=== PATIENT | female | born 1990 | race Caucasian/White ===

== ENCOUNTER 2018-06-14 17:18 | Emergency (ER) | payer OTHER, SELFPAY ==
[2018-06-14 17:20] VITALS: BP 150/86; PULSE 88; RESP 17; TEMP 36.8; O2SAT 98; BMI 47.5
--- NOTE | 2018-06-14 17:50 | RAD_ITS ---
STUDY: X-RAY FOOT RIGHT REASON FOR EXAM: Female, 30 years old. Generalized right foot pain since falling 2 months ago. TECHNIQUE: 3 views COMPARISON: None. FINDINGS: Plantar spur of the calcaneus. Otherwise normal calcaneus, talus and tarsal bones. Normal articulations of the hindfoot midfoot and forefoot. Normal metacarpals. Mild hallux valgus. Normal toes and interphalangeal joints. RAD/Foot min 3 Views IMPRESSION: Negative for fracture or dislocation. Small plantar spur of the calcaneus and mild hallux valgus. Electronically Signed: Kym Haji MD at 18:41 EDT , Service support ,
--- NOTE | 2018-06-14 18:44 | ED.DCSUM_ITS ---
- ER Visit Summary Date of Service: 06/14/18 Chief Complaint: Right foot injury History of Present Illness: The patient is a 27 F who initially injured her right foot 2 months ago. Patient states that she jumped out of the van at work to make it to a meeting in time. She rolled her right foot. She had in termittent pain since that time but now the pain is been worse over the past 1 week and over the arch of her foot. Physical Examination: Blood pressure 150/86, otherwise vitals normal. Patient sitting upright in bed no acute distress. Right lower extremity examination reveals tenderness along the plantar surface of the foot. No overlying skin changes. There is no focal tenderness of the ankle or knee. She does have good pulses and sensation. She does have slight increased pain with dorsiflexion of her toes. Test Results: Right foot x-ray reveals no fracture or dislocation. Small plantar spur is noted. Emergency Department Course and Treatment: Patient be treated with naproxen and prednisone for plantar fasciitis. Tom wrap was applied across the midfoot for support. She is given work restrictions and will follow up with [facility] care. Treatment Plan: [] Disposition: Discharge Impression: Plantar fasciitis status post blunt foot injury This note was generated with [employer] dictation software. It may contain incorrect words, spelling, and punctuation that were not noted in review of the chart prior to signing ED Disposition - Plan for ED Patient: Disposition: Home or Assisted Living Instructions: ED Plantar Fasciitis Prescriptions: Naproxen [Naprosyn] 500 mg PO BID PRN PRN #20 tablet PRN Reason: Pain Prednisone [Deltasone] 40 mg PO DAILY #10 tablet [facility]: [facility] [GROUP OF PHYSICIANS] - 3-5 Days
[2018-06-14 18:52] VITALS: RESP 16
--- NOTE | 2018-06-14 18:52 | ED.RN ---
REVIEWED D/C INSTRUCTIONS, FOLLOW UP CARE, PRESCRIPTIONS, AND S/S THAT WOULD WARRANT A RETURN TO THE ED WITH PT. PT VERBALIZED AN UNDERSTANDING AND DENIES FURTHER QUESTIONS FOR THIS RN. PT SKIN P/W/D, RESP EVEN AND UNLABORED, PT A&O X 3, NO DISTRESS NOTED. PT AMBULATED OUT OF ED, GAIT STEADY.
== END 2018-06-14 18:53 | disposition home or self-care (01) ==
PROVIDERS: Emergency Provider Emergency Medicine; Family Provider Nurse Practitioner Primary Care; PCP Nurse Practitioner Primary Care
DX: S99.921A Unspecified injury of right foot, initial encounter (principal); X50.1XXA Overexertion from prolonged static or awkward postures, initial encounter; Y93.39 Activity, other involving climbing, rappelling and jumping off; Y92.89 Other specified places as the place of occurrence of the external cause; Y99.0 Civilian activity done for income or pay; M72.2 Plantar fascial fibromatosis; M77.31 Calcaneal spur, right foot
CPT/HCPCS: 73630; 99282

== ENCOUNTER 2018-10-01 13:45 | Observation (INO) | payer OTHER, SELFPAY ==
[2018-09-04 15:03] VITALS: BMI 47.5
--- NOTE | 2018-09-07 10:58 | HP_ITS ---
Intake Vital Signs 09/04/18 Body Mass Index (BMI) 47.5 09/04/18 Height 5 ft 2 in 09/04/18 Weight: 252 lb 2 oz 09/04/18 Body Mass Index (BMI) 46.0 09/04/18 Blood Pressure 125/84 H 09/04/18 Blood Pressure Location Rt brachial 09/04/18 Respiratory Rate 18 09/04/18 Pulse Rate 90 09/04/18 Temperature 98.7 F 09/04/18 Temperature Source Oral 09/04/18 Pulse Ox 97 09/04/18 Oxygen Delivery Method room air Intake Visit Reasons: Partial Thyroidectomy Is patient in pain?: No Allergies No Known Allergies Allergy (Verified 09/04/18 15:02) Medications Levonorgesterol [Mirena] 1 ea IY X1 06/14/18 [History Confirmed 09/04/18] Naproxen [Naprosyn] 500 mg PO BID PRN PRN #20 tab 06/14/18 [Rx Confirmed 09/04/18] [id number]-[id number] 250 mg-250 mg-65 mg tablet 2 tab PO Q6H PRN 09/04/18 [History Confirmed 09/04/18] PFSH Medical History Enlarged thyroid (Acute) Surgical History History of ear surgery (Acute) History of nasal surgery (Acute) Family History Mother Diabetes Heart disease Thyroid disorder Father Diabetes Heart disease Seizures Thyroid disorder Grandmother Heart disease Diabetes Social History (Updated 09/07/18 @ 10:58 by Doug Velazquez MD) Smoking Status: Never smoker HPI HPI HPI: CHASIDY OCONNOR, is a 27 F who presents to the office today for HPI HPI Surgical H&P: Yes HPI: CHASIDY OCONNOR, is a 27 F who presents to the office today for evaluation of uninodular goiter. Patient has a thyroid ultrasound completed at [facility] in [place] which showed a 7.6 cm nodule she subsequently underwent a fine-needle aspiration of this which came back consistent with a follicular nodule. There were no nodules on the right side. She has had no difficulty with her voice. She is not complaining of any neck pain. ROS General General: No weight change, appetite, fatigue, colon cancer, breast cancer or weakness HEENT HEENT: Yes difficulty swallowing and swollen glands; no eye injury, eye surgery or hoarseness Endo Endocrine: Yes thyroid disease; no diabetes mellitus, thyroid cancer, Hair loss, heat intolerance or cold intolerance Skin Skin: No rash or changing moles Breast Breast: No left breast lump, right breast lump, nipple discharge, breast pain, abnormal mammogram, abnormal US or breast enlargement Musc Musculoskeletal: No back problems, arthritis, rheumatoid arthritis, gout or joint pain Cardio Cardiovascular: No murmur, pacemaker, heart disease, atrial fibrillation, high blood pressure, heart attack, heart stent, palpitations, shortness of breat with exertion or chest pain Psych Psychiatric: No depression, anxiety or hearing voices Resp Respiratory: No shortness of breath, No sleep apnea, No cough, No COPD, No asthma, No emphysema, No wheezing Gastro Gastrointestinal: No abdominal pain, No nausea or vomiting, No diarrhea, No constipation, No blood in stool, No acid reflux, No hemorrhoids, No ulcers, No gallbladder problem, No black,tarry stools Derrell Hematologic: No blood thinners, No blood disorders, No bleeding, No anemia, No blood clots Neuro Neurologic: No system reviewed and no additional complaints, except as docu, No as per HPI, No abnormal walking, No abnormal hearing, No abnormal movements, No abnormal speech, No behavioral changes, No burning sensations, No confusion, No seizure-like activity, No unsteadiness, No dizziness, No localized weakness, No frequent falls, No headache(s), No lack of coordination, No loss of vision, No memory loss, No numbness, No other visual disturbances, No radiating pain, No restless legs, No sensory deficit, No fainting, No tingling, No tremor(s), No weakness, No other Exam Const General: no acute distress, well developed, well hydrated Orientation: oriented to person, oriented to place, oriented to time [facility] Head: normocephalic, atraumatic Ears: external ears normal Mouth: moist mucous membranes Other: Thyroid Exam: Left-sided enlargement is easily palpable. There are no hard nodules within that side of the neck. I cannot palpate any lymph nodes on that side of the neck. The right side is supple there is no hard palpable nodules or lymphadenopathy identified either. Eyes Sclera: sclerae normal Pupils: normal by confrontation Neck Neck: no lymphadenopathy noted Neck mass: No Thyroid: thyroid normal, symmetrical Chest Chest palpation & inspection: normal inspection of the chest Breast Palpation: No nipple discharge Resp Effort & Inspection: normal respiratory effort Auscultation: clear to auscultation bilaterally Percussion: percussion normal Cardio Rate: regular rate Rhythm: regular rhythm Heart Sounds: no murmurs GI Palpation: soft, no hepatosplenomegaly, no masses, nontender Rectal Exam: other Other: Rectal exam deferred. Extrem General: normal to inspection, no clubbing, cyanosis or edema Assessment & Plan Problems 1. Uninodular goiter E04.1 Plan Plan is to perform a left-sided thyroid lobectomy and isthmusectomy. At the time of surgery I will obtain a frozen section to see if we can identify papillary thyroid cancer and if we can she will undergo total thyroidectomy at that time. Otherwise the patient understands that we will have to obtain a permanent section on the thyroid gland and there still is a possibility that she could go back to surgery and undergo completion right-sided thyroid lobectomy. Risk benefits of the procedure to include bleeding infection and possible injury to parathyroid glands and recurrent laryngeal nerve which could require further surgery were discussed in great detail with her. She agrees to proceed. Coding Level of Care Code Off vis,new,level 3 Diagnoses Uninodular goiter E04.1 09/07/18 1059 <Electronically signed by Doug witt MD> Date _ Doug Velazquez MD I have re-examined the patient. There are no clinical changes since date of exam.
[2018-10-01] VITALS (13 sets, daily range): BP systolic 93–129; BP diastolic 53–77; PULSE 68–118; RESP 16–18; TEMP 36.7–37.1; O2SAT 93–99; BMI 47.0
--- NOTE | 2018-10-01 | IMM_PTH ---
PATIENT: CHASIDY OCONNOR LOC: MS3 U#:[id number] AGE/SX: 27/F ROOM: MS319 RE10/01/[address]: Dr. Doug Velazquez MD : 1990 BED: 1 DIS: 10/02/2018 SPEC #: [id number] RECD: 10/03/18 10:35 STATUS: LINDA REQ #: [id number] RONA: 10/01/18 00:[address]: Doug Velazquez DEPT: IMMUNOHISTOCHEMISTRY RECD BY: Ariel Singh ENTERED: 10/03/18 10:37 SP TYPE: IMMUNO OTHR DR: Mary Bal, BOTTOM CEMENTER-C Tissues: Thyroid gland, NOS Procedures: HBME (initial) CD56 (add) CK19 (add) GAL-3 (add) HBME (add) PHYSICIAN & INSTITUTION [place] [phone] SPECIMEN INFORMATION: Tissue Source: Let thyroid lobectomy Clinical Info: Uninodular goiter Specimen Number: [id number] Blocks 1, 2, and 12 CPT code: 13718, 20962 x11 METHODOLOGY: Deparaffinized sections of prefer/formalin-fixed tissue or PAP/DQ stained slides are incubated with monoclonal/polyclonal antibodies/oligonucleotide probes. Localization is made via biotin free immunoperoxidase method. Appropriate controls are performed and reacted as expected. Results on target cell population are indicated in the following table: RESULTS: ANTIBODY / CLONE RESULT Block 1 HBME1 (HBME-1) positive, focal CK19 (A53-B/A2.26) positive, focal GAL3 (9C4) negative CD56 (123C3.D5) positive Block 2 HBME1 (HBME-1) positive CK19 (A53-B/A2.26) positive GAL3 (9C4) positive CD56 (123C3.D5) negative Block 12 HBME1 (HBME-1) positive CK19 (A53-B/A2.26) negative GAL3 (9C4) negative CD56 (123C3.D5) positive These tests were developed and their performance characteristics determined by [facility]. They may not have been cleared or approved by the U.S. Food and Drug Administration. The FDA has determined that such clearance or approval is not necessary. INTERPRETATION: Left thyroid lobectomy and isthmusectomy: - Colloid nodule with multifocal adenomatoid changes. 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 Wright who concurs with the above diagnosis. IDC:[email or web address] SJ:cc 10/04/18
[2018-10-01 09:03] LABS: Internal QC Validated? YES +Cl - CLEAR BKGD; Pregnancy, Urine Negative Negative
[2018-10-01] MEDS: Lactated Ringers 1,000 ML 75 ML IV ×3 (09:54→14:37)
[2018-10-01] MEDS: Cefazolin 2 GM in 0.9% Normal Saline 100 ML IV (11:09)
--- NOTE | 2018-10-01 11:40 | THYROID_PTH ---
PATIENT: CHASIDY OCONNOR LOC: MS3 U#:[id number] AGE/SX: 27/F ROOM: MS319 RE10/01/[address]: Dr. Doug Velazquez MD : 1990 BED: 1 DIS: 10/02/2018 SPEC #: [id number] RECD: 10/01/18 11:47 STATUS: LINDA REMichael #: [id number] RONA: 10/01/18 11:[address]: Doug Velazquez DEPT: SURGICAL PATHOLOGY RECD BY: Ariel Singh ENTERED: 10/01/18 13:39 SP TYPE: THYROID OTHR DR: Mary Bal, TIRE SETTER-C Tissues: Thyroid gland, NOS Procedures: Frozen Section (charge) Surgery Specimen Level V HEADER OPERATION: Thyroid lobectomy, isthmusectomy PRE-OP DIAGNOSIS: Uninodular goiter TISSUE SUBMITTED: Left thyroid lobectomy FROZEN SECTION DIAGNOSIS Left thyroid lobectomy: Colloid nodule :eliceo 10/01/18 MICROSCOPIC DIAGNOSIS Left thyroid, lobectomy, isthmusectomy: Colloid nodule with multifocal adenomatoid changes (8 cm in greatest dimension). Papillary thyroid microcarcinoma, isthmus (0.2 cm in greatest dimension). See cancer summary below. SJ:herrera 10/03/18 THYROID CANCER SUMMARY: Procedure - Thyroid lobectomy and isthmusectomy. Received - fresh in formalin Specimen integrity - intact Specimen size - left lobe 8 x 5.5 x 3 cm, isthmus 1 x 1 x 0.4 cm Specimen weight - 75.8 gm Tumor focality - unifocal Tumor laterality - left lobe Tumor size - 0.2 cm in greatest dimension Histologic type - papillary carcinoma Variant - microcarcinoma Architecture - follicular Cytomorphology - classical Margins - uninvolved by carcinoma Distance invasive carcinoma to closest margin - 0.2 cm from closest anterior margin Tumor capsule - not identified Tumor capsular invasion - not applicable Lymph-Vascular invasion - not identified Perineural invasion - not identified Extrathyroidal extension - not identified Lymph nodes - no nodes submitted or found Distant metastasis - not applicable Additional pathologic findings - follicular adenoma Ancillary studies - See report [id number] PATHOLOGIC STAGE: pT1 NX MX The above summary is in compliance with [employer] Path[employer] (CAP) Cancer Protocols Checklist and [place] Joint Committee on Cancer (AJCC), Staging Manual, 8th Ed. COMMENT Grossly no definite nodule is identified, however, microscopically the entire lobe is replaced by the large colloid nodule with multifocal adenomatoid changes. Case has been reviewed in consultation with Dr. Wright who concurs with the above diagnosis. IDC:AM MICROSCOPIC DESCRIPTION Slides are reviewed. GROSS DESCRIPTION Received fresh for frozen section diagnosis labeled with the patient's name is a specimen designated left thyroid lobectomy. The specimen consists of left thyroid lobectomy and isthmectomy. The specimen weighs 75.8 gm. The left lobe measures 8 x 5.5 x 3 cm. The isthmus measures 1 x 1 x 0.4 cm. No external parathyroid tissue is identified. The specimen is inked as follows: anterior - blue; posterior - black; isthmic margin - yellow. Serial sections revealed pink-red cut surfaces. No obvious nodule is identified. A section is submitted for frozen section diagnosis. [employer] sections are submitted in 12 cassettes as follows: 1 - frozen section; 2 - isthmus; 3-12 - more sections cassette ( 3 containing most superior portion and cassette 12 containing most inferior portion). MARIANA:herrera 10/02/18 TC: 0 CPT: 46904, 67480
--- NOTE | 2018-10-01 11:58 | PCM.OPRPT ---
Problem List (1) Uninodular goiter Status: Acute Report of Operation Date of Procedure: 10/01/18 Pre-Operative Diagnosis: Left-sided uninodular goiter Post-Operative Diagnosis: Same Surgery/Procedure Performed:: Left-sided thyroid lobectomy and isthmusectomy Type of Anesthesia:: General Anesthesiologist: Mihai Somers Specimen's removed: Left thyroid and isthmus. Frozen section was colloid nodule Estimated Blood Loss (mL): < 25 cc Fluids Replaced: 700 cc LR Description of Procedure: Was brought in the operating room. Placed in the supine position. Under excellent general trach intubation the neck was extended and sterilely prepped and draped in usual fashion. Local was injected. Cervical incision was made. Dissection was carried down through the platysma. Subplatysmal flaps were created with use letter cautery. Gelpi retractor was placed inside the wound. Midline strap muscles were opened. I transected the strap muscles immediately with harmonic dissector. I went to the superior pole vessels took these down with harmonic dissector. Rotated the gland from lateral to medial standpoint taking the middle thyroidal vein down. Finally going to the inferior thyroid vessels and taking these down with harmonic dissector. Rotated the gland from lateral medial standpoint him across Khanh's ligaments with a harmonic dissector. Rotated the gland off the trachea and then transected on the right side of the thyroid gland. I inspected it I saw nothing that look like parathyroid tissue. Irrigated out the left side I had good hemostasis I brought the strap muscles together in layers using 0 Vicryl then placed FloSeal in place of Surgicel into the wound. Midline strap muscles were reapproximated using 2-0 Vicryl. Subplatysmal flaps were then brought together with 2-0 Vicryl. Local was injected. Deep dermal stitches of 3-0 Vicryl. Then a running 4-0 Monocryl. Dermabond was applied sterile dressings were applied and the patient tolerated the procedure well. Prior to closure frozen section did come back consistent with a colloid nodule. - Admit VTE Documentation VTE Present on Admission: No VTE Mechan Device Prophylaxis: SCD's VTE Pharm Prophylaxis ordered?: No Reason prophylaxis not ordered:: Treatment Not Indicated
[2018-10-01] MEDS: BUPIVACAINE LIPOSOME/PF 20 ML VIAL OPERA.SITE (12:21)
[2018-10-01] MEDS: oxyCODONE 5 MG Tablet PO (22:06)
[2018-10-02 04:00] VITALS: BP 129/74; PULSE 97; RESP 18; TEMP 37; O2SAT 94
[2018-10-02] MEDS: oxyCODONE 5 MG Tablet PO ×2 (04:06→10:12)
[2018-10-02] MEDS: Lactated Ringers 1,000 ML 75 ML IV (04:06)
--- NOTE | 2018-10-02 07:08 | PCM.PN.SRG ---
Patient Problems: Active and Suspected Problems (Last Reviewed 09/07/18 @ 10:56 by Doug Velazquez MD) Uninodular goiter (Acute) Subjective: Patient evaluated resting comfortably in bed. She notes minimal amount of incisional discomfort. - Physical Exam General: Alert, Oriented x3, Cooperative Neck: Supple, No JVD, Negative Carotid Bruits, - - Anterior cervical incision- c/d/i. No erythema or infection noted. Vital Signs Temp Pulse Resp BP Pulse Ox 98.6 F 97 18 129/74 H 94 10/02/18 04:00 10/02/18 04:00 10/02/18 04:00 10/02/18 04:00 10/02/18 04:00 Oxygen Flow Rate (L/min) 2 Oxygen Delivery Method Room Air Weight: 248 lb 14.43 oz Body Mass Index (BMI) 47.0 Intake and Output for Last 24 Hours 09/30/18 10/01/18 10/02/18 23:59 23:59 23:59 Intake Total 1845 / 2045 1200 / 1200 Balance 1845 / 2045 1200 / 1200 Laboratory Tests Past 24 Hrs 10/01/18 08:50 Urine Test Negative Medical Necessity - Tobacco Use Smoking Status: Never smoker Assessment/Plan All Active Problems (Last Reviewed 09/07/18 @ 10:56 by Doug Velazquez MD) Uninodular goiter (Acute) Enlarged thyroid (Acute) I am following this patient in conjunction with Dr. Velazquez S/p left thyroid lobectomy Ready for discharge Code Visit Inpatient E&M: 61347 Subs Hosp L1 - No charge
--- NOTE | 2018-10-02 07:10 | DCINST_ITS ---
Discharge Diet: Light diet - advance as tolerated Discharge Activity: May not drive while taking narcotic pain medications. May shower in (days): 1 Lifting Restrictions: 10 pounds Call your doctor if your incision/area has: Continuous Slow Oozing, Sudden Increased Bleeding, Increased Pain/ Swelling, Increased Redness, Foul Smelling Discharge, Swelling at the incision site Call your doctor if you observe: Fever of 101 or Higher, Coldness, Increased Pain Suture Line Care: Avoid Pulling/Pushing, Avoid Pinching/Bending Cleanse incision/area with: Soap & Water Allergies/Adverse Reactions: Allergies No Known Allergies Allergy (Verified 09/24/18 11:12) Medications to take at Discharge Levonorgesterol [Mirena] 1 ea IY X1 06/14/18 [id number]-[id number]-[id number] 250 mg-250 mg-65 mg tablet 2 tab PO Q6H PRN 09/04/18 Albuterol Inhaler [Ventolin Hfa] 1 - 2 puff INHALATION Q6H PRN PRN 09/24/18 Oxycodone HCl/Acetaminophen [Percocet 5/325] 1 - 2 tab PO Q4H PRN PRN 6 Days #30 tab 10/01/18 Oxycodone [Oxyir] 5 mg PO Q6H PRN PRN 3 Days #8 tab 10/02/18 The following prescriptions were given: Oxycodone HCl/Acetaminophen [Percocet 5/325] 1 - 2 tab PO Q4H PRN PRN 6 Days #30 tab PRN Reason: Pain Prescription Printed Primary Care Physician: Mary Bal NP-C [Primary Care Provider] - Test Results: Test results from this visit will be discussed in further detail at your follow- up appointment, if applicable. Please Follow Up With: Doug Velazquez MD - [phone] When: 10 days Proposed Discharge Date: 10/02/18
[2018-10-02 08:30] VITALS: BP 144/92; PULSE 102; RESP 18; TEMP 36.9; O2SAT 96
== END 2018-10-02 11:31 | disposition home or self-care (01) ==
LOC: SDC 14:11
PROVIDERS: Anesthesiology; Admitting Provider Surgery; Family Provider Nurse Practitioner Primary Care; PCP Nurse Practitioner Primary Care; Referring Provider Surgery; Visit Provider Surgery
PROC: (CPT 60220; principal; 2018-10-01 10:45)
DX: C73 Malignant neoplasm of thyroid gland (principal); K21.9 Gastro-esophageal reflux disease without esophagitis; E04.1 Nontoxic single thyroid nodule
CPT/HCPCS: 60220; 81025; 88307; 88331; 88341; 88342; 96360; 96361; 99218; J7120; G0378; G0379; J2405

== ENCOUNTER 2020-04-02 18:56 | Emergency (ER) | payer OTHER, SELFPAY ==
[2018-10-08 10:15] VITALS: BMI 47.0
[2020-04-02 18:58] VITALS: BP 156/79; PULSE 95; RESP 15; TEMP 36.2; O2SAT 98; BMI 44.9
--- NOTE | 2020-04-02 19:08 | ED.VIS.GEN ---
History of Present Illness Chief Complaint: Lower Extremity Injury Informant: Patient Onset: Hours Context: Sudden Onset Timing: Continuous Quality: Discomfort Location: Lateral right ankle Current Severity: Mild Maximum Severity: Mild Worsened by: Movement Relieved by: Rest Associated Symptoms: None Narrative: Patient presents from work for evaluation of right ankle injury. Based on what she described she had applied inversion mechanism injury. She did not feel a pop or tear. She reports swelling over the lateral aspect. She denies prior injury. She denies pain in her foot. She denies paresthesia, anesthesia or motor weakness. Prior similar symptoms: No Recent Illness/Hospitalization: No - Past Medical History (1) Enlarged thyroid Status: Acute Past Medical History - Allergies and Home Meds Allergies/Adverse Reactions: Allergies No Known Allergies Allergy (Verified 04/02/20 19:00) Primary Care Physician: Mary Bal NP, METHODS SPECIALIST ENGINEER-C [Primary Care Provider] - Prior records reviewed: Yes Surgical History: no surgical history Lives: Alone Smoking Status: Never smoker Drugs: None Review of Systems General: Denies: Chills, Fever, Malaise Musculoskeletal: Reports: Swelling, Extremity Pain. Denies: Myalgias, Arthralgias Skin: Denies: Rash, Wounds Neurological: Denies: Weakness, Parasthesia, Numbness Hematologic: Denies: Easy bruising, Easy bleeding Physical Exam Vital Signs/Narrative: Vital Signs Temp Pulse Resp BP Pulse Ox 04/02/20 18:58 97.2 F L 95 15 156/79 H 98 Inital Vital Signs reviewed: Yes General: Well nourished, Well developed, Obese, No Acute Distress Head: Normocephalic, Atraumatic Eyes: Perrl, EOMI. Negative for: Scleral icterus Cardiovascular: Regular rate, Regular rhythm Respiratory: No distress Extremities: No edema, Tenderness - Normal tenderness over the tip/distal aspect of the right fibula. There is no pain ovation over the medial malleolus. There is no laxity with drawer testing. There is no pain to palpation of base of the fifth metatarsal. DP and PT pulse are palpable., - - Patient has pain ovation over the anterior talofibular ligament. There is no pain over the calcaneofibular ligament.. Negative for: Nontender Skin: Normal color, No rash, Trauma - Soft tissue swelling and discoloration over the lateral malleolus Neurological: Alert, Oriented x3, Cranial nerves II-XII grossly intact, Normal Strength, Normal Sensation, Normal DTR Psychological: Normal affect, Normal Mood Diagnostic/Tx/Re-eval - Medical Decision Making Presents with injury to ankle. Differential includes sprain versus fracture. Based on the [place] ankle rule imaging not indicated. Patient was treated with NSAIDs and discharged home with appropriate home-going instructions. ED Disposition - Plan for ED Patient: Disposition: Home or Assisted Living Diagnosis: Sprain of anterior talofibular ligament of right ankle Instructions: ED Ankle Sprain (Adult) Prescriptions: Naproxen [Naprosyn] 500 mg PO BID #14 tab Transmission Status: Pending to [place] [address] [address] [facility] Referrals: Mary Bal METHODS SPECIALIST ENGINEER, METHODS SPECIALIST ENGINEER-C [Primary Care Provider] - 10-14 Days if not better Additional Instructions: 1. Where flat shoes until pain-free 2. No going up ladders or inclines greater than 10/15 degrees for the next week or 2. 3. Apply ice 6-8 times a day. 4. The more you are standing or upright the more swelling you may have.
== END 2020-04-02 19:53 | disposition home or self-care (01) ==
LOC: ED 19:25
PROVIDERS: Emergency Provider Emergency Medicine; PCP Nurse Practitioner Primary Care
DX: S93.491A Sprain of other ligament of right ankle, initial encounter (principal); X50.1XXA Overexertion from prolonged static or awkward postures, initial encounter; Y93.9 Activity, unspecified; Y92.9 Unspecified place or not applicable; Y99.0 Civilian activity done for income or pay; E66.9 Obesity, unspecified; Z68.41 Body mass index [BMI] 40.0-44.9, adult
CPT/HCPCS: 99282

== ENCOUNTER 2020-12-22 22:39 | Emergency (ER) | payer OTHER, SELFPAY ==
[2020-12-22 22:41] VITALS: BP 129/91; PULSE 109; RESP 15; TEMP 36.4; O2SAT 97; BMI 42.2
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
[2020-12-23] MEDS: Ondansetron ODT 4 MG Tablet PO (00:55)
== END 2020-12-23 00:48 | disposition home or self-care (01) ==
LOC: ED 12-23 00:56
PROVIDERS: Emergency Provider Student in an Organized Health Care Education/Training Program; PCP Nurse Practitioner Primary Care
DX: S06.0X0A Concussion without loss of consciousness, initial encounter (principal); Y04.2XXA Assault by strike against or bumped into by another person, initial encounter; Y93.89 Activity, other specified; Y92.099 Unspecified place in other non-institutional residence as the place of occurrence of the external cause; Y99.0 Civilian activity done for income or pay
CPT/HCPCS: 99281; 99283

== ENCOUNTER → 2024-05-16 | Outpatient (CLI) | payer OTHER, SELFPAY ==
--- NOTE | 2024-05-16 14:47 | CT_ITS ---
PROCEDURE: SINUS/FACIAL BONE REASON FOR EXAM: SINUSITIS TECHNIQUE: CT of the paranasal sinuses without contrast. Coronal and Sagittal reconstruction series were provided. One or more dose reduction techniques were used (e.g., Automated exposure control, adjustment of the mA and/or kV according to patient size, use of iterative reconstruction technique). COMPARISON: None. FINDINGS: Single thin synechia left maxillary sinus axial 80 series 4. Minimal maxillary sinus mucoperiosteal thickening. The paranasal sinuses otherwise are clear. The ostiomeatal complexes, frontal ethmoidal and sphenoid ethmoidal recesses appear clear. No sinus wall thickening or sclerosis. No air-fluid levels. The turbinates appear within limits. A single left ethmoidal Erwin cell axial 89, incidental. Slight rightward bowing of the nasal septum. No nasal septal spur. Infratemporal fossa fat appears preserved. Pterygopalatine foramen appear within limits. TMJs appear normally located. Bilateral fossa of Rosenmuller appears symmetric. Visualized mastoids appear clear. The right middle and inner ears and internal auditory canals appear within limits. Appearance of soft tissue about the left ossicles for example axial 85 may be inflammatory or infectious, can not exclude a cholesteatoma. The scutum appears sharp. The left inner ear and internal auditory canal appears within limits. Orbits appear within limits. No dental periapical lucency identified. CT/Sinus/Facial Bone IMPRESSION: No significant appearing paranasal sinus disease as above. Appearance of soft tissue left middle air about the left ossicles for example a xial 85 may be inflammatory or infectious, can not exclude a cholesteatoma, clinically correlate. Reading Location: [id number]
== END | disposition home or self-care (01) ==
LOC: CT 14:38
PROVIDERS: PCP Nurse Practitioner Primary Care; Referring Provider Otolaryngology; Visit Provider Otolaryngology
DX: J32.8 Other chronic sinusitis (principal)
CPT/HCPCS: 70486

== ENCOUNTER → 2024-05-19 | Outpatient (CLI) | payer OTHER, SELFPAY | END | disposition home or self-care (01) | LOC: LABSPEC 16:12 | PROVIDERS: PCP Nurse Practitioner Primary Care; Referring Provider Otolaryngology; Visit Provider Otolaryngology | DX: J32.9 Chronic sinusitis, unspecified (principal) | CPT/HCPCS: 87070; 87077; 87205 ==